=== PATIENT | male | born 1975 | race Caucasian/White ===

== ENCOUNTER 2024-10-23 08:07 | Emergency (ER) | payer MEDICAID, SELFPAY ==
[2024-10-23 08:16] VITALS: BP 161/102; PULSE 79; RESP 18; TEMP 36.7; O2SAT 98; BMI 38.3
--- NOTE | 2024-10-23 08:25 | XR_ITS ---
Examination: CT abdomen and pelvis without contrast. Coronal 3-D reconstructions. Sagittal 2-D reconstructions. Date and time of exam:October 23, 2024, 0844 hours Comparison December 31, 2017 INDICATIONS: Hematuria and lower abdominal pain beginning 2 days ago CTDI: vol (mGy): 17 DLP: (mGycm): 1095 Technique: Axial images of the abdomen have been obtained, 3 mm slice thickness Intravenous contrast material has not been administered. Low dose protocols were performed. One or more of the following dose reduction techniques were used; automated exposure control, adjustment of the mA and/or KV according to patient size, use of iterative reconstruction technique. Findings: Diffuse fatty infiltration throughout the liver Gallstones, gallbladder wall does not appear thickened Spleen is not enlarged No pancreatic or adrenal mass No renal or ureteral calculi, no hydronephrosis Aorta normal size No bowel obstruction 8 mm fat-containing umbilical hernia Normal appendix Focal wall thickening, axial image 171 in the sigmoid colon Urinary bladder wall shows thickening up to 4 mm No prostatomegaly Moderate osteopenia IMPRESSION: Cholelithiasis, negative for cholecystitis No renal or ureteral calculi, no hydronephrosis Normal appendix Focal wall thickening in the sigmoid colon, axial image 171, recommend colonoscopy follow-up to exclude early neoplasm in the sigmoid colon Cystitis pattern
[2024-10-23 08:44] LABS: Basophils # (Auto) 0.1 Thou/mm3 (0.0-0.2); Basophils % (Auto) 1 % (0-2.5); Eosinophils # (Auto) 0.5 Thou/mm3 (0.0-0.5); Eosinophils % (Auto) 6 % (0-10); Hematocrit 46.5 % (41.0-53.0); Hemoglobin 16.5 g/dL (13.5-16.0); Immature Granulocytes Auto 0.04 Thou/mm3 (0.00-0.00); Lymphocytes # (Auto) 2.4 Thou/mm3 (1.0-4.8); Lymphocytes % (Auto) 28 % (10-50); Mean Corpuscular HGB Conc 35.5 g/dl (31.0-37.0); Mean Corpuscular Hemoglobin 30.9 pg (25.0-35.0); Mean Corpuscular Volume 87 fL (80-100); Monocytes # (Auto) 0.6 Thou/mm3 (0.0-0.8); Monocytes % (Auto) 7 % (0-12); Neutrophils # (Auto) 4.9 Thou/mm3 (1.8-7.7); Neutrophils % (Auto) 58 % (37-80); Nucleated Red Blood Cell # 0.00 Thou/mm3 (0.00-0.00); Nucleated Red Blood Cell % 0 /100 WBC (0); Platelet Count 177 Thou/mm3 (140-440); RDW Standard Deviation 42.5 fL (35.1-43.9); Red Blood Count 5.34 Miln/mm3 (4.50-5.90); White Blood Count 8.4 Thou/mm3 (3.8-10.6)
[2024-10-23 09:04] LABS: Alanine Aminotransferase 60 U/L (10-49); Albumin, Serum 4.4 gm/dL (3.5-5.0); Albumin/Globulin Ratio 1.9 (1.2-2.2); Alkaline Phosphatase 80 U/L (46-116); Anion Gap 10 (7-16); Aspartate Amino Transferase 28 U/L (0-34); BUN/Creatinine Ratio 11 Ratio (12-20); Bilirubin,Total 0.8 mg/dL (0.3-1.2); Blood Urea Nitrogen 11 mg/dL (9-23); Calcium 9.1 mg/dL (8.3-10.6); Calcium (Corrected) 9.1 mg/dL (8.5-10.1); Carbon Dioxide 26.7 mMol/L (20.0-31.0); Chloride 106 mMol/L (98-107); Creatinine (Component) 1.0 mg/dL (0.6-1.3); Estimated Creatinine Clearance 120.2 mL/min (>60); Globulin 2.3 gm/dL (2.3-3.5); Glucose 114 mg/dL (74-106); Lipase 34 U/L (12-53); Osmolality,Calculated 285 (275-295); Potassium 4.0 mMol/L (3.4-5.1); Sodium 143 mMol/L (136-145); Total Protein 6.7 gm/dL (5.7-8.2); eGFR > 60 See Note
[2024-10-23 09:35] LABS: Collection Type, Urine Clean Catch; Squamous Epithelial Cell,Urine 0 /hpf (0-5)
[2024-10-23 10:20] LABS: Bilirubin,Urine Negative (Negative); Blood,Urine 2+ (Negative); Clarity,Urine Turbid (Clear/Hazy); Color,Urine Yellow (Lt Yel-Yel); Glucose, Urine Negative (Negative); Ketones,Urine Negative (Negative); Leukocyte Esterase,Urine Positive (Negative); Nitrite,Urine Negative (Negative); PH,Urine 6.5 (5.0-7.0); Protein,Urine 1+ (Neg - Trace); RBC,Urine 58 /hpf (0-3); Specific Gravity,Urine 1.018 (1.001-1.035); Urobilinogen,Urine Negative mg/dL (0.0-1.0); WBC,Urine 459 /hpf (0-5)
[2024-10-23 10:25] LABS: Culture Indicated,Urine Yes
--- NOTE | 2024-10-23 10:29 | PD.EDABDPN ---
ED Abdominal Pain RME/HPI General Chief Complaint: Abdominal Pain Stated complaint: UTI SYMPTOMS SINCE YESTERDAY, BLOOD IN URINE Time seen by provider: 10/23/24 08:15 Arrival date/time: 10/23/24 08:07 49-year-old male presents emergency department today for complaints of pelvic pain and dysuria patient believes he has a UTI. Limitations: no limitations Related Data Previous Rx's ?Medication ?Instructions ?Recorded ciprofloxacin HCl 500 mg tablet 500 mg PO BID 7 days #14 tabs 10/23/24 ibuprofen 800 mg tablet 800 mg PO TID PRN pain #30 tabs 10/23/24 Allergies Allergy/AdvReac Type Severity Reaction Status Date / Time No Known Allergies Allergy Verified 10/23/24 08:10 Review of Systems Review of Systems Systems Reviewed: All systems reviewed, normal except as documented Constitutional Constitutional: Reports system reviewed and no additional complaints, except as documented, Denies fever(s) and Denies headache(s) Eyes Eyes: Reports system reviewed and no additional complaints, except as documented and Denies blurry vision ENT Ears, Nose, Mouth, and Throat: Reports system reviewed and no additional complaints, except as documented, Denies headache(s), Denies nasal congestion and Denies nasal discharge Cardiovascular Cardiovascular: Reports system reviewed and no additional complaints, except as documented, Denies chest pain and Denies dyspnea Respiratory Respiratory: Reports system reviewed and no additional complaints, except as documented, Denies chest congestion, Denies cough and Denies dyspnea Gastrointestinal Gastrointestinal: Reports system reviewed and no additional complaints, except as documented and Denies abdominal pain Genitourinary Genitourinary: Reports system reviewed and no additional complaints, except as documented, Reports dysuria and Reports hematuria Integumentary/Breasts Skin/Breast: Reports system reviewed and no additional complaints, except as documented and Denies rash Neurologic Neurologic: Reports system reviewed and no additional complaints, except as documented, Reports as per HPI and Denies headache(s) Past Medical History Past Medical History NEUROLOGIC: Negative Neurological Disorders CARDIAC: Negative Cardiac Disorders or Congestive Heart Failure RESPIRATORY: Positive Asthma; Negative Chronic Obstructive Pulmonary Disease (COPD) GASTROINTESTINAL: Positive Gastrointestinal Disorders and Diverticulitis GENITOURINARY: Negative Genitourinary Disorders or Renal Disease REPRODUCTIVE: Negative Fibroids or Testicular Cancer MUSCULOSKELETAL: Negative Musculoskeletal Disorders ENDOCRINE: Negative Endocrine Disorders, Diabetes Mellitus Type 1 or Diabetes Mellitus Type 2 HEMATOLOGIC: Negative Blood Disorders or Sickle Cell Disease OTHER HISTORY: Negative MRSA, VRSA, Vancomycin-Resistant Enterococci or Testicular Cancer Surgical History SURGICAL: Negative Cardiac Surgery, Endocrine Surgery, Thyroidectomy, Nephrectomy, Transurethral Resection, Neurologic Surgery, Brain Shunt or Vasectomy Social History SMOKING STATUS: Never smoker SECOND HAND EXPOSURE: No ED Exam General Limitations: Present no limitations General appearance: Present alert and in no apparent distress Head Head exam: Present atraumatic Eye Eye exam: Present normal appearance, PERRL and EOMI ENT ENT exam: Present normal exam, normal oropharynx and mucous membranes moist Neck Neck exam: Present normal inspection, full ROM and trachea midline Chest Chest inspection: Present normal inspection and symmetric chest wall rise Respiratory Respiratory exam: Present normal lung sounds bilaterally Cardiovascular Cardiovascular exam: Present regular rate, normal rhythm and normal heart sounds Abdominal Exam Abdominal exam: Present soft and normal bowel sounds; Absent distention, tenderness, guarding, rebound or rigidity Extremities Exam Extremities exam: Present normal inspection and full ROM Back Exam Back exam: Present normal inspection and full ROM Neurological Exam Neurological exam: Present alert, oriented X3 and CN II-XII intact Psychiatric Psychiatric exam: Present normal affect and normal mood Skin Skin exam: Present warm, dry, intact and normal color Course Quality Measures none Orders Category Date Time Status CT abdomen pelvis wo con Stat Exams 10/23/24 08:25 Completed CBC Stat Lab 10/23/24 08:29 Completed Comprehensive Metabolic Panel Stat Lab 10/23/24 08:29 Completed Lipase Stat Lab 10/23/24 08:29 Completed UA, C/S IF [Urinalysis, C/S if Indicated] Stat Lab 10/23/24 08:55 Completed Urine Culture Stat Lab 10/23/24 08:55 Received Lidocaine 1% 20 ml [Xylocaine 1% 20 ML] Med 10/23/24 10:29 Discontinued 2.1 ml INFL X1 ONE cefTRIAXone [Rocephin] Med 10/23/24 10:29 Discontinued 1,000 mg IM X1 ONE Vital Signs Vital signs: Vital Signs Temperature 98.0 F 10/23/24 08:16 Pulse Rate 79 10/23/24 08:16 Respiratory Rate 18 10/23/24 08:16 Blood Pressure 161/102 H 10/23/24 08:16 Pulse Oximetry (%) 98 10/23/24 08:16 Oxygen Delivery Method Room Air 10/23/24 08:16 O2 saturation 98% room air within normal limits Abdominal Pain MDM MDM Narrative MDM Narrative:: 49-year-old male presents emergency department today for complaints of pelvic pain and dysuria patient believes he has a UTI. On exam patient well-appearing patient's not appear ill or toxic no acute distress Lab work and imaging obtained UA consistent with UTI/cystitis patient be treated symptomatically. Incidentally noted patient has had a gallstone patient worsening upper abdominal pain and is aware of the gallstones There is incidental note of inflammation of the colon on the CT scan per radiologist who recommends patient have an outpatient colonoscopy this was explained to the patient Patient given a copy of his CT report told to follow-up with GI specialist Patient discharged home in no distress to follow-up with primary care doctor in the next 24 to 48 hours and for any worsening symptoms to return to the ER immediately Patient data External records reviewed:: [facility] previous records Clinical information provided by:: patient Social determinants that could affect healthcare access:: none Patient has the following chronic illnesses:: See history How is presenting disease/condition affected by chronic disease/condition?: uneffected by Evaluation data The following diagnostics were reviewed and interpreted by me:: lab results and radiology exam(s) Lab and/or radiology exams considered but not ordered:: Lab obtain Interpretation Summary: Reviewed by me Medications / Prescriptions Medications or Prescriptions considered but not ordered:: Given Medication administrations:: Medication Administration History Discontinued Medications Ceftriaxone Sodium (Ceftriaxone Sod Inj 1,000 Mg Vial) 1,000 mg IM X1 ONE Stop: 10/23/24 10:30 Last Admin: 10/23/24 10:44 Dose: 1,000 mg Documented By: Lidocaine HCl (Lidocaine Hcl 1% 20 Ml Vial) 2.1 ml INFL X1 ONE Stop: 10/23/24 10:30 Last Admin: 10/23/24 10:45 Dose: 2.1 ml Documented By: Given Consultations Consultation(s) initiated? (list below): No Diagnosis Differential diagnosis abdominal pain: abdominal pain, calculus of kidney and pancreatitis Most likely diagnosis given after review of the tests above:: UTI Admission Indicated Admission indicated?: not indicated Admission Request Was there a request for admission?: No Disposition Plan Disposition Plan: Discharge Discharge Attestation Discharge Attestation: The patient and all family members were given an opportunity to ask questions and understood the discharge instructions. Discharge instructions specifically effects, indications for sooner follow up or return to the emergency department, and the expected course of current diagnosis. Patient condition: Stable Discharge Plan Plan Patient Disposition: HOME (Self Care) Discharge Disposition comment: Stable Prescriptions/Referrals Prescriptions/Med Rec: New ibuprofen 800 mg tablet 800 mg PO TID PRN (Reason: pain) Qty: 30 0RF ciprofloxacin HCl 500 mg tablet 500 mg PO BID 7 Days Qty: 14 0RF Referrals: Jeanne Fu PA-C [Primary Care Provider] - 10/25/24 Problem List Clinical Impression: Hematuria, Painful urination, Cholelithiasis, Abnormal CT of the abdomen Patient/Caregiver Discharge Instructions Education Materials: ED Hematuria Additional Instructions: Please follow up with your primary care doctor in the next 24-48hrs for any worsening symptoms return here immediately Please bring copy of your CT report to your primary care doctor request colonoscopy and further follow-up with GI specialist Print Language: Citizen Of [place] Stand Alone Forms: Samra Award Info., Patient Portal Info Letter JESUS/ALICIA Supervising Physician JESUS/ALICIA Supervising Physician: Dr. Darryl MCCOY Attestation MD Attestation The patient was seen by the midlevel practitioner. I, the co-signing physician, was present during the entire ER visit. While I did not physically examine the patient, I was available for consultation as needed. I agree with the plan and documentation.
[2024-10-23 10:40] VITALS: BP 170/90; PULSE 71; RESP 18; TEMP 36.7; O2SAT 98
[2024-10-23] MEDS: cefTRIAXone SOD INJ 1,000 MG VIAL 1000 MG IM (10:44)
[2024-10-23] MEDS: LIDOCAINE HCL 1% 20 ML VIAL 2.1 ML INFL (10:45)
== END 2024-10-23 10:55 | disposition home or self-care (01) ==
PROVIDERS: Nurse Practitioner Primary Care; Emergency Provider Family Medicine; PCP Physician Assistant Medical
DX: R31.9 Hematuria, unspecified (principal); R30.0 Dysuria; K80.20 Calculus of gallbladder without cholecystitis without obstruction; K52.9 Noninfective gastroenteritis and colitis, unspecified
CPT/HCPCS: 36415; 74176; 80053; 81001; 83690; 85025; 87077; 87086; 87186; 99283; J0696; J3490

== ENCOUNTER 2025-03-12 15:44 | Emergency (ER) | payer MEDICAID, SELFPAY ==
[2025-03-12 16:13] VITALS: BP 159/97; PULSE 86; RESP 18; TEMP 36.8; O2SAT 97; BMI 36.1
--- NOTE | 2025-03-12 16:26 | EDNOTE_ITS ---
ED Skin Abcess FB-RME/HPI General Chief complaint: Skin/Abscess/Foreign Body Stated complaint: WANTS MOLE ON FOREHEAD REMOVED Time Seen by Provider: 03/12/25 15:47 Arrival date/time: 03/12/25 15:44 This is a 40 male that comes into the emergency room with complaints of wanting a mole on his forehead removed. Patient states he already has a consult with a equipment services associate tomorrow. Patient states that he wears a face shield and it cut part of his mole. It was bleeding. Patient has Band-Aid on it. Patient states he has had this mole since he was a small child. Mole is approximately 1 cm. Related Data Previous Rx's ?Medication ?Instructions ?Recorded ibuprofen 800 mg tablet 800 mg PO TID PRN pain #30 t abs 10/23/24 Allergies Allergy/AdvReac Type Severity Reaction Status Date / Time No Known Allergies Allergy Verified 03/12/25 15:46 Review of Systems Review of Systems Systems Reviewed: All systems reviewed, normal except as documented Past Medical History Past Medical History NEUROLOGIC: Negative Neurological Disorders CARDIAC: Negative Cardiac Disorders or Congestive Heart Failure RESPIRATORY: Positive Asthma; Negative Chronic Obstructive Pulmonary Disease (COPD) GASTROINTESTINAL: Positive Gastrointestinal Disorders and Diverticulitis GENITOURINARY: Negative Genitourinary Disorders or Renal Disease REPRODUCTIVE: Negative Fibroids or Testicular Cancer MUSCULOSKELETAL: Negative Musculoskeletal Disorders ENDOCRINE: Negative Endocrine Disorders, Diabetes Mellitus Type 1 or Diabetes Mellitus Type 2 HEMATOLOGIC: Negative Blood Disorders or Sickle Cell Disease OTHER HISTORY: Negative MRSA, VRSA, Vancomycin-Resistant Enterococci or Testicular Cancer Surgical History SURGICAL: Negative Cardiac Surgery, Endocrine Surgery, Thyroidectomy, Nephrectomy, Transurethral Resection, Neurologic Surgery, Brain Shunt or Vasectomy Social History SMOKING STATUS: Never smoker SECOND HAND EXPOSURE: No ED Exam Narrative Physical exam: VITAL SIGNS: Reviewed. GENERAL APPEARANCE: Alert and interactive, follows commands, no acute distress HEAD AND FACE: Non-traumatic. Patient is accompanied his right congregation area approximately 1 cm no bleeding noted. ENT: PERRL, conjuctiva pink and clear, eyelid no trauma, Mucous membrane moist. LUNGS: breathing even and unlabored HEART: Regular rate, cap refill less than 2 seconds NEUROLOGICAL: Gross motor function intact sensory function intact, Appropriate for age. MUSCULOSKELETAL: full range of motion. Ambulatory steady gait SKIN: Color pink, dry Course Quality Measures none Vital Signs Vital signs: Vital Signs Temperature 98.3 F 03/12/25 16:13 Pulse Rate 86 03/12/25 16:13 Respiratory Rate 18 03/12/25 16:13 Blood Pressure 159/97 H 03/12/25 16:13 Pulse Oximetry (%) 97 03/12/25 16:13 Oxygen Delivery Method Room Air 03/12/25 16:13 Skin / Abscess / Foreign Body MDM Narrative MDM Narrative:: I spoke to patient at length. I explained to him that we do not take patient to emergency room. This should be done by a equipment services associate as it should be biopsied. Explained to patient the reason they do not take mL out in the emergency room is that sometimes these tissues need to be biopsied and never started with the equipment services associate. Patient verbalized understanding. Patient did not wait for discharge paperwork. Patient states he already has an appointment with a equipment services associate. Dragon dictation: Although this document has been carefully reviewed, there may still be some phonetic and other typographical errors. These errors are purely grammatical due to imperfections in the software program and should not be construed in any way to compromise the substance of the patient's medical care during this visit. Patient data External records reviewed:: [facility] previous records Clinical information provided by:: patient Social determinants that could affect healthcare access:: none Patient has the following chronic illnesses:: None How is presenting disease/condition affected by chronic disease/condition?: no chronic disease Evaluation data The following diagnostics were reviewed and interpreted by me:: other (specify) (none ) Lab and/or radiology exams considered but not ordered:: none Interpretation Summary: see note Medications / Prescriptions Medications or Prescriptions considered but not ordered:: none Medication administrations:: se note Consultations Consultation(s) initiated? (list below): No Diagnosis Skin/Abscess Differential Diagnosis: abscess of skin or subcutaneous tissue, cellulitis and other (Bleeding mole, skin contusion, skin abrasion) Most likely diagnosis given after review of the tests above:: See note Admission Indicated Admission indicated?: not indicated Admission Request Was there a request for admission?: No Disposition Plan Disposition Plan: other (specify) (No paperwork given to patient because he left before it was printed. Patient was good to be discharged) Discharge Plan Plan Patient Disposition: Elopement Patient condition on transfer: Stable Prescriptions/Referrals Prescriptions/Med Rec: No Action ibuprofen 800 mg tablet 800 mg PO TID PRN (Reason: pain) Qty: 30 0RF Problem List Clinical Impression: Bleeding skin mole Patient/Caregiver Discharge Instructions Discharge Activity: activity as tolerated Education Materials: Monitoring Moles Additional Instructions: Keep scheduled appointment with equipment services associate. Follow up with primary provider in 1-2 days. Come back to ED if symptoms change or worsen Print Language: [place] Stand Alone Forms: Samra Award Info., Patient Portal Info Letter PA/SENIOR BI ARCHITECT Supervising Physician PA/SENIOR BI ARCHITECT Supervising Physician: sallie
== END 2025-03-12 16:30 | disposition left against medical advice (07) ==
LOC: SERX 16:41
PROVIDERS: Emergency Provider Nurse Practitioner Family
DX: D22.39 Melanocytic nevi of other parts of face (principal); Z53.29 Procedure and treatment not carried out because of patient's decision for other reasons
CPT/HCPCS: 99281